=== PATIENT | female | born 1990 | race Caucasian/White ===

== ENCOUNTER 2019-04-29 00:37 | Emergency (ER) | payer OTHER ==
[~2019-04-29] VITALS: Ht 157.5 cm; Wt 68.0 kg
[~2019-04-29 00:37] MED LIST: ACYCLOVIR 400400 MG PO; ACYCLOVIR 800800 MG PO; AMOXICILLIN 50500 MG PO; AMOXICILLIN500 M1 PO; BACLOFEN 10MG T10 MG PO; BENTYL20 MG PO; CATAPRES0.1 MG PO; FAMVIR500 MG PO; IBUPROFEN 800800 MG PO; METHADONE10 MG/1 M1 PO; METHOCARBAMOL500 M2 PO; NORCO 5-325 TA1 EACH PO; PREDNISONE50 MG PO; REMERON15 MG PO; ZOFRAN4 MG PO
[2019-04-29] MEDS ORDERED: MEDROLDOSEPACK PO (01:52)
[2019-04-29] MEDS ORDERED: NORFLEX100 MG PO (01:52)
[2019-04-29] MEDS ORDERED: NAPROSYN500 MG PO (01:52)
[2019-04-29 02:29] VITALS: BP 120/88
== END 2019-04-29 02:33 | disposition home or self-care (01) ==
LOC: ER 00:37
DX: M54.12 Radiculopathy, cervical region (principal); F17.210 Nicotine dependence, cigarettes, uncomplicated; Z90.49 Acquired absence of other specified parts of digestive tract; Z88.8 Allergy status to other drugs, medicaments and biological substances